=== PATIENT | male | born 1960 | race African-American/Black ===

== ENCOUNTER 2019-10-01 15:10 | Inpatient (IN) | payer OTHER, BC ==
[2019-10-01 17:01] VITALS: BMI 22.5
--- NOTE | 2019-10-01 18:50 | HP ---
CIWA Score Nausea/Vomitin-No Nausea/No Vomiting Muscle Tremors: None Anxiety: 0-No Anxiety, at Ease Agitation: 1-Slight > Activity Paroxysmal Sweats: No Perspiration Orientation: 1-Uncertain about Date Tacttile Disturbances: 0-None Auditory Disturbances: 0-None Visual Disturbances: 0-None Headache: 0-None Present CIWA-Ar Total Score: 2 - Admission Criteria OASAS Guidelines: Admission for Medically Managed Detox: Requires at least one of the followin. CIWA greater than 12 2. Seizures within the past 24 hours 3. Delirium tremens within the past 24 hours 4. Hallucinations within the past 24 hours 5. Acute intervention needed for co occurring medical disorder 6. Acute intervention needed for co occurring psychiatric disorder 7. Severe withdrawal that cannot be handled at a lower level of care (continued vomiting, continued diarrhea, abnormal vital signs) requiring intravenous medication and/or fluids 8. Admission ROS [facility] Allergies/Adverse Reactions: Allergies Allergy/AdvReac Type Severity Reaction Status Date / Time No Known Allergies Allergy Verified 10/01/19 16:43 History of Present Illness: 59 y.o. male w/ etoh use , claims 5-6 beers/da , denies seizures , + blackouts , denies tremors , starts drinking around 10 a.m. , stops in the evenings cocaine : 300 $ every other week . tobacco : quit years ago denies other illicits PMHX : CVA x 2 2 1/2 years ago w/ sequelae memory impairment . PSHX : denies PSych : bipolar d/o , depression suicide attempt 10 years ago by jumping off a bridge , denies current SI / HI not on meds, prior Prozac > 1 year ago . Exam Limitations: No Limitations - Review of Systems Constitutional: No Symptoms Reported EENT: reports: No Symptoms Reported (glasses) Respiratory: reports: No Symptoms reported Cardiac: reports: No Symptoms Reported GI: reports: No Symptoms Reported : reports: No Symptoms Reported Musculoskeletal: reports: No Symptoms Reported Integumentary: reports: No Symptoms Reported Neuro: reports: No Symptoms reported Patient History - Smoking Cessation Smoking history: Current every day smoker Have you smoked in the past 12 months: Yes Hx Chewing Tobacco Use: No Initiated information on smoking cessation: Yes 'Breaking Loose' booklet given: 10/01/19 - Substances abused Cocaine Substance route: Smoking Frequency: 1-2 times per week Amount used: 200 to 300 dollars Age of first use: 28 Date of last use: 09/30/19 Alcohol Substance route: Oral Frequency: Daily Amount used: 5-6 beers/day Age of first use: 14 Date of last use: 09/30/19 Admission Physical Exam S - Vital Signs Vital Signs: Vital Signs - 24 hr 10/01/19 16:42 Temperature 97.9 F Pulse Rate 84 Respiratory 18 Rate Blood Pressure 114/69 - Physical General Appearance: Yes: No Apparent Distress HEENTM: Yes: EOMI, Hearing grossly Normal, Normocephalic, Normal Voice Respiratory: Yes: Chest Non-Tender, Lungs Clear, Normal Breath Sounds, No Respiratory Distress, No Accessory Muscle Use Neck: Yes: No masses,lesions,Nodules, Trachea in good position Cardiology: Yes: Regular Rhythm, Regular Rate, S1, S2 Abdominal: Yes: Non Tender, Soft Musculoskeletal: Yes: Gait Steady Extremities: Yes: Normal Range of Motion, Non-Tender Neurological: Yes: Fully Oriented, Alert, Motor Strength 5/5 Integumentary: Yes: Warm - Diagnostic (1) Alcohol use disorder Current Visit: Yes Status: Chronic (2) Cocaine abuse, episodic Current Visit: Yes Status: Chronic Breathalyzer - Breathalyzer Breathalyzer: 0 Urine Drug Screen - Test Device Lot number: [id number] Expiration date: 07/25/21 - Control Is test valid?: Yes - Results Drug screen NEGATIVE: No Urine drug screen results: YUE-Cocaine Inpatient Rehab Admission - Rehab Decision to Admit Inpatient rehab admission?: No
[2019-10-01] MEDS ORDERED: MENTHOL/PHENOL 1 EACH UD MM PRN (18:54)
[2019-10-01] MEDS ORDERED: P-EPHED 60MG/TRIPROLIDI 2.5MG TABLET PO PRN (18:54)
[2019-10-01] MEDS ORDERED: MAGNESIUM CITRATE 300 ML BOTTLE PO PRN (18:54)
[2019-10-01] MEDS ORDERED: hydrOXYzine PAMOATE 25 MG CAPSULE (FP) PO PRN (18:54)
[2019-10-01] MEDS ORDERED: ACETAMINOPHEN 325 MG TABLET (FP) PO PRN (18:54)
[2019-10-01] MEDS ORDERED: LOPERAMIDE HCL 2 MG CAPSULE PO PRN (18:54)
[2019-10-01] MEDS ORDERED: MAG HYDROX/AL HYDROX/SIMETH 30 ML UNIT-DOSE CUP PO PRN (18:54)
[2019-10-01] MEDS ORDERED: guaiFENesin 200 MG/10 ML 10 ML UNIT-DOSE CUPS PO PRN (18:54)
[2019-10-01] MEDS ORDERED: IBUPROFEN 400 MG TABLET (FP) PO PRN (18:54)
[2019-10-01] MEDS ORDERED: MAGNESIUM HYDROX 2400MG/30ML ORAL SUSPENSION 30 ML CUP PO PRN (18:54)
--- NOTE | 2019-10-01 19:43 | HP ---
[facility] Rehab Assess/Revision - Vital signs Vital Signs: Vital Signs Period Temp Pulse Resp BP Sys/Lepe Pulse Ox Last 24 Hr 97.9 F 84 18 114/69 Inpatient Rehab Admission - Rehab Decision to Admit Inpatient rehab admission?: Yes - Initial Determination Are CD services needed?: Yes Free of communicable disease: Yes Not in need of hospitalization: Yes - Rehab Admission Criteria Previous failed treatment: No Poor recovery environment: No Comorbidities: Yes Lacks judgement: Yes Patient is meeting Inpatient Rehab admission criteria:: Yes
[2019-10-01] MEDS: MELATONIN 5 MG TABLETS PO PRN (21:48)
[2019-10-01] MEDS: THIAMINE HCL 100 MG TABLET (FP) PO SCH (21:48)
--- NOTE | 2019-10-02 09:48 | CONSULT ---
[facility] Psychiatric Consult - Data Date of interview: 10/02/19 Admission source: [facility] Identifying data: Patient is a 59 year old but male, without children, unemployed, and is supported by [facility]. This is patient's first admission to rehab at [facility]. Patient admitted to for alcohol and cocaine dependence. Substance Abuse History: Smoking Cessation. Smoking history: Current every day smoker. Have you smoked in the past 12 months: Yes. Hx Chewing Tobacco Use: No. Initiated information on smoking cessation: Yes. 'Breaking Loose' booklet given: 10/01/19. - Substances abused. Cocaine. Substance route: Smoking. Frequency: 1-2 times per week. Amount used: 200 to 300 dollars. Age of first use: 28. Date of last use: 09/30/19. Alcohol. Substance route: Oral. Frequency: Daily. Amount used: 5-6 beers/day. Age of first use: 14. 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 Patient was admitted to [facility] in [place], diagnosed with MDD, and prescribed psychotropic medications. Patient states that the suicide attempt was prescipitated due to the of his mother. After discharge in 1979 patient reports subsequent [facility] ([facility], [facility], [address] [place] [address] in [facility], and most recently [facility] after feeling depressed). Patient reports past treatment with prozac , seroquel , trazodone. Patient has received outpatient [facility] at the [facility] but has been lost in follow up care for approximately three years. Mr. Garcia reports history of three suicide attempts (attempting to jump off a naval ship + bridge in [place], [place] +Overdose). Most recent suicide attempt was 7 years ago. At present patient reports stable mood but is experiencing difficulty sleeping. Physical/Sexual Abuse/Trauma History: denies. Mental Status Exam - Mental Status Exam Alert and Oriented to: Time, Place, Person Cognitive Function: Good Patient Appearance: Well Groomed Mood: Withdrawn Affect: Mood Congruent Patient Behavior: Fatigued, Cooperative Speech Pattern: Clear, Appropriate Voice Loudness: Moderately Soft/Quiet Thought Process: Intact, Goal Oriented Thought Disorder: Not Present Hallucinations: Denies Suicidal Ideation: Denies Homicidal Ideation: Denies Insight/Judgement: Poor Sleep: Poorly Appetite: Fair Muscle strength/Tone: Normal Gait/Station: Normal Psychiatric Findings - Problem List ([place] 1, 2,3) (1) Substance-induced sleep disorder Current Visit: Yes Status: Acute (2) Alcohol use disorder Current Visit: Yes Status: Chronic (3) Cocaine abuse, episodic Current Visit: Yes Status: Chronic (4) History of depression Current Visit: Yes Status: Chronic - Initial Treatment Plan Initial Treatment Plan: Psychoeducation provided. Rehab in progress. Will order Trazodone 50mg HS. Benefits and side effects discussed. Verbal consent given.
[2019-10-02] MEDS: PRENATAL VITAMINS W/ FOLIC ACID TABLET (FP) PO SCH (10:08)
[2019-10-02 10:50] LABS: PH,URINE 6.5 (5.0-8.0); URINE APPEARANCE CLEAR; URINE BILIRUBIN NEGATIVE (NEGATIVE); URINE COLOR YELLOW; URINE GLUCOSE (UA) NEGATIVE (NEGATIVE); URINE KETONE TRACE (NEGATIVE); URINE LEUK ESTERASE NEGATIVE (NEGATIVE); URINE NITRITE NEGATIVE (NEGATIVE); URINE PROTEIN NEGATIVE (NEGATIVE)
[2019-10-02 12:04] LABS: HEMATOCRIT 35.3 % (35.4-49); HEMOGLOBIN 11.6 GM/dL (11.7-16.9); MCH 30.8 pg (25.7-33.7); MCHC 32.9 g/dl (32.0-35.9); MEAN CELL VOLUME 93.5 fl (80-96); MEAN PLT VOLUME 9.9 fl (7.5-11.1); PLATELET COUNT 198 K/MM3 (134-434); RBC 3.77 M/mm3 (4.00-5.60); RDW 13.7 % (11.9-15.9); WHITE BLOOD COUNT 4.8 K/mm3 (4.0-10.0)
[2019-10-02 12:19] LABS: ALBUMIN 3.1 g/dl (3.4-5.0); BILIRUBIN,TOTAL 0.7 mg/dL (0.2-1); BLOOD UREA NITROGEN 11.7 mg/dL (7-18); CALCIUM 8.7 mg/dL (8.5-10.1); CREATININE 0.8 mg/dL (0.55-1.3); POTASSIUM 3.9 mmol/L (3.5-5.1); TOT PROT 6.7 g/dl (6.4-8.2)
[2019-10-02] MEDS: MELATONIN 5 MG TABLETS PO PRN (21:42)
[2019-10-02] MEDS: THIAMINE HCL 100 MG TABLET (FP) PO SCH (21:42)
[2019-10-02] MEDS: traZODone HCL 50 MG TABLET (FP) PO SCH (21:43)
[2019-10-03] MEDS: PRENATAL VITAMINS W/ FOLIC ACID TABLET (FP) PO SCH (10:12)
--- NOTE | 2019-10-03 14:37 | EKG ---
Test Reason : Blood Pressure : / mmHG Vent. Rate : 069 BPM Atrial Rate : 069 BPM P-R Int : 170 ms QRS Dur : 088 ms QT Int : 390 ms P-R-T Axes : 067 063 057 degrees QTc Int : 417 ms NORMAL SINUS RHYTHM EARLY REPOLARIZATION NORMAL ECG Confirmed by MD TEJAL, DEMI ([id number]) on 10/03/2019 2:36:58 PM Referred By: Confirmed By:DEMI TOURE MD
[2019-10-03] MEDS: MELATONIN 5 MG TABLETS PO PRN (21:14)
[2019-10-03] MEDS: THIAMINE HCL 100 MG TABLET (FP) PO SCH (21:14)
[2019-10-03] MEDS: traZODone HCL 50 MG TABLET (FP) PO SCH (21:14)
[2019-10-04] MEDS: PRENATAL VITAMINS W/ FOLIC ACID TABLET (FP) PO SCH (10:26)
[2019-10-04] MEDS: traZODone HCL 50 MG TABLET (FP) PO SCH (21:33)
[2019-10-04] MEDS: MELATONIN 5 MG TABLETS PO PRN (21:33)
[2019-10-04] MEDS: THIAMINE HCL 100 MG TABLET (FP) PO SCH (21:33)
[2019-10-05] MEDS: PRENATAL VITAMINS W/ FOLIC ACID TABLET (FP) PO SCH (09:58)
--- NOTE | 2019-10-05 10:33 | PN ---
[facility] Progress Note Note: PATIENT IS ADMITTED TO REHAB FOR ALCOHOL/COCAINE DEPENDENCE. ROS: DENIES SHAKES, SWEATING, CHEST PAIN AND SOB Laboratory Tests 10/02/19 10/02/19 10/02/19 08:00 08:50 08:50 WBC 4.8 RBC 3.77 L Hgb 11.6 L Hct 35.3 L MCV 93.5 MCH 30.8 MCHC 32.9 RDW 13.7 Plt Count 198 MPV 9.9 Sodium 139 Potassium 3.9 Chloride 104 Carbon Dioxide 31 Anion Gap 4 L BUN 11.7 Creatinine 0.8 Est GFR (CKD-EPI)AfAm 111.74 Est GFR (CKD-EPI)NonAf 96.41 Random Glucose 155 H Calcium 8.7 Total Bilirubin 0.7 AST 41 H ALT 35 Alkaline Phosphatase 80 Total Protein 6.7 Albumin 3.1 L Urine Color Yellow Urine Appearance Clear Urine pH 6.5 Ur Specific [place] 1.026 Urine Protein Negative Urine Glucose (UA) Negative Urine Ketones Trace H Urine Blood Negative Urine Nitrite Negative Urine Bilirubin Negative Urine Urobilinogen 2.0 Ur Leukocyte Esterase Negative RPR Titer 10/02/19 08:50 WBC RBC Hgb Hct MCV MCH MCHC RDW Plt Count MPV Sodium Potassium Chloride Carbon Dioxide Anion Gap BUN Creatinine Est GFR (CKD-EPI)AfAm Est GFR (CKD-EPI)NonAf Random Glucose Calcium Total Bilirubin AST ALT Alkaline Phosphatase Total Protein Albumin Urine Color Urine Appearance Urine pH Ur Specific [place] Urine Protein Urine Glucose (UA) Urine Ketones Urine Blood Urine Nitrite Urine Bilirubin Urine Urobilinogen Ur Leukocyte Esterase RPR Titer Nonreactive Vital Signs Temperature 97.8 F 10/05/19 06:57 Pulse Rate 69 10/05/19 06:57 Respiratory Rate 18 10/05/19 06:57 Blood Pressure 114/67 10/05/19 06:57 O2 Sat by Pulse Oximetry (%) PE: ALERT AND ORIENTED X 3 SKIN WARM AND DRY +PERRLA, EOMS INTACT BL EXT FULL ROM, AMB AD VERONICA DENIES SI/HI A/P: ALCOHOL/YUE DEPENDENCE CONTINUE REHAB
[2019-10-05] MEDS: MELATONIN 5 MG TABLETS PO PRN (21:16)
[2019-10-05] MEDS: traZODone HCL 50 MG TABLET (FP) PO SCH (21:16)
[2019-10-05] MEDS: THIAMINE HCL 100 MG TABLET (FP) PO SCH (21:16)
[2019-10-06] MEDS: PRENATAL VITAMINS W/ FOLIC ACID TABLET (FP) PO SCH (10:17)
[2019-10-06] MEDS: traZODone HCL 50 MG TABLET (FP) PO SCH (21:34)
[2019-10-06] MEDS: THIAMINE HCL 100 MG TABLET (FP) PO SCH (21:34)
[2019-10-06] MEDS: MELATONIN 5 MG TABLETS PO PRN (21:34)
[2019-10-07] MEDS: PRENATAL VITAMINS W/ FOLIC ACID TABLET (FP) PO SCH (10:44)
[2019-10-07] MEDS: THIAMINE HCL 100 MG TABLET (FP) PO SCH (21:05)
[2019-10-07] MEDS: MELATONIN 5 MG TABLETS PO PRN (21:05)
[2019-10-07] MEDS: traZODone HCL 50 MG TABLET (FP) PO SCH (21:05)
[2019-10-08] MEDS: PRENATAL VITAMINS W/ FOLIC ACID TABLET (FP) PO SCH (10:18)
[2019-10-08] MEDS: MELATONIN 5 MG TABLETS PO PRN (21:28)
[2019-10-08] MEDS: THIAMINE HCL 100 MG TABLET (FP) PO SCH (21:28)
[2019-10-08] MEDS: traZODone HCL 50 MG TABLET (FP) PO SCH (21:29)
[2019-10-09] MEDS: PRENATAL VITAMINS W/ FOLIC ACID TABLET (FP) PO SCH (10:20)
[2019-10-09] MEDS: THIAMINE HCL 100 MG TABLET (FP) PO SCH (21:07)
[2019-10-09] MEDS: traZODone HCL 50 MG TABLET (FP) PO SCH (21:07)
[2019-10-09] MEDS: MELATONIN 5 MG TABLETS PO PRN (21:07)
[2019-10-10] MEDS: PRENATAL VITAMINS W/ FOLIC ACID TABLET (FP) PO SCH (10:31)
[2019-10-10] MEDS: traZODone HCL 50 MG TABLET (FP) PO SCH (21:47)
[2019-10-10] MEDS: THIAMINE HCL 100 MG TABLET (FP) PO SCH (21:47)
[2019-10-10] MEDS: MELATONIN 5 MG TABLETS PO PRN (21:48)
[2019-10-11] MEDS: PRENATAL VITAMINS W/ FOLIC ACID TABLET (FP) PO SCH (09:57)
[2019-10-11] MEDS: MELATONIN 5 MG TABLETS PO PRN (21:13)
[2019-10-11] MEDS: THIAMINE HCL 100 MG TABLET (FP) PO SCH (21:13)
[2019-10-11] MEDS: traZODone HCL 50 MG TABLET (FP) PO SCH (21:13)
[2019-10-12] MEDS: PRENATAL VITAMINS W/ FOLIC ACID TABLET (FP) PO SCH (10:23)
[2019-10-12] MEDS: traZODone HCL 50 MG TABLET (FP) PO SCH (21:26)
[2019-10-12] MEDS: THIAMINE HCL 100 MG TABLET (FP) PO SCH (21:26)
[2019-10-12] MEDS: MELATONIN 5 MG TABLETS PO PRN (21:26)
[2019-10-13] MEDS: PRENATAL VITAMINS W/ FOLIC ACID TABLET (FP) PO SCH (10:10)
[2019-10-13] MEDS: THIAMINE HCL 100 MG TABLET (FP) PO SCH (21:06)
[2019-10-13] MEDS: MELATONIN 5 MG TABLETS PO PRN (21:06)
[2019-10-13] MEDS: traZODone HCL 50 MG TABLET (FP) PO SCH (21:06)
[2019-10-14] MEDS: PRENATAL VITAMINS W/ FOLIC ACID TABLET (FP) PO SCH (10:17)
[2019-10-14] MEDS: THIAMINE HCL 100 MG TABLET (FP) PO SCH (21:35)
[2019-10-14] MEDS: MELATONIN 5 MG TABLETS PO PRN (21:35)
[2019-10-14] MEDS: traZODone HCL 50 MG TABLET (FP) PO SCH (21:35)
[2019-10-15] MEDS: PRENATAL VITAMINS W/ FOLIC ACID TABLET (FP) PO SCH (10:15)
[2019-10-15] MEDS: traZODone HCL 50 MG TABLET (FP) PO SCH (21:10)
[2019-10-15] MEDS: MELATONIN 5 MG TABLETS PO PRN (21:11)
[2019-10-15] MEDS: THIAMINE HCL 100 MG TABLET (FP) PO SCH (21:11)
[2019-10-16] MEDS: PRENATAL VITAMINS W/ FOLIC ACID TABLET (FP) PO SCH (10:55)
[2019-10-16] MEDS: traZODone HCL 50 MG TABLET (FP) PO SCH (21:28)
[2019-10-16] MEDS: THIAMINE HCL 100 MG TABLET (FP) PO SCH (21:28)
[2019-10-16] MEDS: MELATONIN 5 MG TABLETS PO PRN (21:28)
[2019-10-17] MEDS: PRENATAL VITAMINS W/ FOLIC ACID TABLET (FP) PO SCH (10:25)
[2019-10-17] MEDS: THIAMINE HCL 100 MG TABLET (FP) PO SCH (21:08)
[2019-10-17] MEDS: traZODone HCL 50 MG TABLET (FP) PO SCH (21:08)
[2019-10-17] MEDS: MELATONIN 5 MG TABLETS PO PRN (21:08)
[2019-10-18] MEDS: PRENATAL VITAMINS W/ FOLIC ACID TABLET (FP) PO SCH (09:29)
[2019-10-18] MEDS: MELATONIN 5 MG TABLETS PO PRN (21:27)
[2019-10-18] MEDS: traZODone HCL 50 MG TABLET (FP) PO SCH (21:27)
[2019-10-18] MEDS: THIAMINE HCL 100 MG TABLET (FP) PO SCH (21:27)
[2019-10-19] MEDS: PRENATAL VITAMINS W/ FOLIC ACID TABLET (FP) PO SCH (10:36)
[2019-10-19] MEDS: traZODone HCL 50 MG TABLET (FP) PO SCH (21:20)
[2019-10-19] MEDS: THIAMINE HCL 100 MG TABLET (FP) PO SCH (21:20)
[2019-10-20] MEDS: PRENATAL VITAMINS W/ FOLIC ACID TABLET (FP) PO SCH (11:51)
--- NOTE | 2019-10-20 15:04 | PN ---
[facility] Progress Note Note: Patient reports sleeping poorly despite taking Trazadone 50 mg/hs and Melatonin 5 mg/hs. Will increase Trazadone dosage to 100 mg/hs
[2019-10-20] MEDS: THIAMINE HCL 100 MG TABLET (FP) PO SCH (21:32)
[2019-10-20] MEDS: MELATONIN 5 MG TABLETS PO PRN (21:33)
[2019-10-20] MEDS: traZODone HCL 100 MG TABLET (FP) PO SCH (21:33)
[2019-10-21] MEDS: PRENATAL VITAMINS W/ FOLIC ACID TABLET (FP) PO SCH (10:27)
[2019-10-21] MEDS: traZODone HCL 100 MG TABLET (FP) PO SCH (21:10)
[2019-10-21] MEDS: THIAMINE HCL 100 MG TABLET (FP) PO SCH (21:10)
[2019-10-21] MEDS: MELATONIN 5 MG TABLETS PO PRN (21:10)
[2019-10-22] MEDS: PRENATAL VITAMINS W/ FOLIC ACID TABLET (FP) PO SCH (10:51)
[2019-10-22] MEDS: THIAMINE HCL 100 MG TABLET (FP) PO SCH (21:31)
[2019-10-22] MEDS: MELATONIN 5 MG TABLETS PO PRN (21:31)
[2019-10-22] MEDS: traZODone HCL 100 MG TABLET (FP) PO SCH (21:31)
[2019-10-23] MEDS: PRENATAL VITAMINS W/ FOLIC ACID TABLET (FP) PO SCH (10:19)
[2019-10-23] MEDS: MELATONIN 5 MG TABLETS PO PRN (21:07)
[2019-10-23] MEDS: THIAMINE HCL 100 MG TABLET (FP) PO SCH (21:07)
[2019-10-23] MEDS: traZODone HCL 100 MG TABLET (FP) PO SCH (21:07)
[2019-10-24] MEDS: PRENATAL VITAMINS W/ FOLIC ACID TABLET (FP) PO SCH (10:32)
[2019-10-24] MEDS: THIAMINE HCL 100 MG TABLET (FP) PO SCH (22:35)
[2019-10-24] MEDS: traZODone HCL 100 MG TABLET (FP) PO SCH (22:35)
[2019-10-25] MEDS: PRENATAL VITAMINS W/ FOLIC ACID TABLET (FP) PO SCH (10:50)
[2019-10-25] MEDS: THIAMINE HCL 100 MG TABLET (FP) PO SCH (22:18)
[2019-10-25] MEDS: traZODone HCL 100 MG TABLET (FP) PO SCH (22:18)
[2019-10-26] MEDS: PRENATAL VITAMINS W/ FOLIC ACID TABLET (FP) PO SCH (10:31)
[2019-10-26] MEDS: traZODone HCL 100 MG TABLET (FP) PO SCH (21:28)
[2019-10-26] MEDS: THIAMINE HCL 100 MG TABLET (FP) PO SCH (21:28)
[2019-10-26] MEDS: MELATONIN 5 MG TABLETS PO PRN (21:28)
[2019-10-27 06:47] VITALS: BP 134/81; PULSE 65; TEMP 98
--- NOTE | 2019-10-27 09:06 | DS ---
[facility] Rehab Discharge Summary - [facility] Rehab Discharge Summary Admission Date: 10/01/19 Discharge Date: 10/27/19 - History Present History: Alcohol dependence, Cocaine dependence Pertinent Past History: 59 y.o. male w/ etoh use , claims 5-6 beers/day , denies seizures , + blackouts , denies tremors , starts drinking around 10 a.m. , stops in the evenings cocaine : 300 $ every other week . tobacco : quit years ago denies other illicits PMHX : CVA x 2 2 1/2 years ago w/ sequelae memory impairment . PSHX : denies PSych : bipolar d/o , depression suicide attempt 10 years ago by jumping off a bridge , denies current SI / HI not on meds, prior Prozac > 1 year ago . - Discharge Physical Exam Vital Signs: Vital Signs Temperature 98.0 F 10/27/19 06:47 Pulse Rate 65 10/27/19 06:47 Respiratory Rate 20 10/27/19 06:47 Blood Pressure 134/81 10/27/19 06:47 O2 Sat by Pulse Oximetry (%) Pertinent Admission Physical Exam Findings: Physical General Appearance: No Apparent Distress HEENTM: Normocephalic, PERRLA Respiratory: Lungs Clear, Neck: supple Cardiology: S1, S2 Abdominal: +BS Musculoskeletal: Full ROM, Gait Steadyr Neurological: CN 2-12 intact - Treatment Discharge Condition: Outpatient referral accepted ([facility] will go to the [facility] for substance use aftercare and medical care. medically stable for discharge.) Hospital Course: patient attended groups, had 1:1 with his counselor, was seen by the psychiatric service. He had no acute or urgent medical issues while in rehab. - Medication Discharge Medications: Ambulatory Orders NK [No Known Home Medication] 10/01/19 - Medication-Assisted Treatment (MAT) Medication-Assisted Treatment (MAT): No - Discharge Instructions Diet, activity, other medical instructions: Diet: as tolerated Activity: as tolerated Other medical instructions: Please follow up with medical treatment. - Diagnosis (1) Alcohol use disorder Current Visit: Yes Status: Chronic (2) Cocaine abuse, episodic Current Visit: Yes Status: Chronic - Follow-up Referral Minutes to complete discharge: 15 - AMA Did Patient Leave Against Medical Advice: No
== END 2019-10-27 09:23 | disposition home or self-care (01) | DRG 895 ==
LOC: YASAS 15:10 → Y3W 19:03
PROVIDERS: ADMIT Allergy & Immunology; ATTEND Allergy & Immunology
PROC: HZ42ZZZ Group Counseling for Substance Abuse Treatment, Cognitive-Behavioral (ICD-10-PCS; principal; 2019-10-01)
DX: F10.20 Alcohol dependence, uncomplicated (principal); F14.20 Cocaine dependence, uncomplicated; F19.282 Other psychoactive substance dependence with psychoactive substance-induced sleep disorder; F17.210 Nicotine dependence, cigarettes, uncomplicated; F31.9 Bipolar disorder, unspecified; I69.811 Memory deficit following other cerebrovascular disease; Z56.0 Unemployment, unspecified; Z91.5 Personal history of self-harm
CPT/HCPCS: 36415; 80053; 81003; 82962; 85027; 86593; 93005; 93010